=== PATIENT | female | born 1945 | race African-American/Black ===

== ENCOUNTER 2017-05-27 08:19 | Emergency (ER) | payer BC, MEDICARE, OTHER ==
[~2017-05-27] VITALS: Ht 172.7 cm; Wt 57.0 kg
[2017-05-27] MEDS ORDERED: IBUPROFEN 400MG TABLET PO ONE (09:15)
[2017-05-27 10:46] VITALS: BP 127/80
== END 2017-05-27 10:52 | disposition home or self-care (01) ==
LOC: ER 08:23
DX: S16.1XXA Strain of muscle, fascia and tendon at neck level, initial encounter (principal); M54.5 Low back pain; M25.519 Pain in unspecified shoulder; E78.00 Pure hypercholesterolemia, unspecified; X58.XXXA Exposure to other specified factors, initial encounter; Y93.89 Activity, other specified; Y92.89 Other specified places as the place of occurrence of the external cause; Y99.8 Other external cause status
CPT/HCPCS: 99283